=== PATIENT | male | born 1975 | race African-American/Black ===

== ENCOUNTER 2019-02-10 10:55 | Emergency (ER) | payer OTHER ==
[~2019-02-10] VITALS: Ht 175.3 cm; Wt 86.2 kg
[2019-02-10] MEDS ORDERED: IBUPROFEN 800800 M1 PO (12:35)
[2019-02-10 12:59] VITALS: BP 127/85
== END 2019-02-10 13:00 | disposition home or self-care (01) ==
LOC: ER 10:55
DX: S52.021A Displaced fracture of olecranon process without intraarticular extension of right ulna, initial encounter for closed fracture (principal); S16.1XXA Strain of muscle, fascia and tendon at neck level, initial encounter; S46.811A Strain of other muscles, fascia and tendons at shoulder and upper arm level, right arm, initial encounter; F17.210 Nicotine dependence, cigarettes, uncomplicated; V89.2XXA Person injured in unspecified motor-vehicle accident, traffic, initial encounter; Y93.89 Activity, other specified; Y92.89 Other specified places as the place of occurrence of the external cause; Y99.8 Other external cause status